=== PATIENT | male | born 1995 | race Caucasian/White ===

== ENCOUNTER 2020-08-18 00:14 | Emergency (ER) | payer BC, OTHER ==
[~2020-08-18] VITALS: Ht 175.3 cm; Wt 70.3 kg
[2020-08-18 00:14] VITALS: BP_SYST 129
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
--- NOTE | 2020-08-18 00:27 | NUR ---
ER Dr. Vann at bedside examining patient.
--- NOTE | 2020-08-18 00:44 | NUR ---
# 20 gauge angiocath placed to LAC. Use of asceptic technique. Opsite placed over site. Blood return noted. Blood for lab drawn from site. Flushed with 10 cc of normal saline. No evidence of infiltration noted. Patient tolerated well.
[2020-08-18] MEDS ORDERED: NACL 0.9% 1,000 ML IV ONE (00:45)
--- NOTE | 2020-08-18 00:46 | NUR ---
PATIENT OFF UNIT TO CT SCAN ACCOMPANIED BY APPRAISAL TECHNICIAN AND EMT
--- NOTE | 2020-08-18 00:52 | NUR ---
PATIENT RETURNED FROM CT SCAN.
[2020-08-18 00:54] LABS: BASOPHILS # (AUTO) 0.1 K/uL (0.0-0.2); BASOPHILS % (AUTO) 0.9 % (0.0-2.0); EOSINOPHILS # (AUTO) 0.6 K/uL (0.0-0.4); EOSINOPHILS % (AUTO) 8.5 % (0.0-4.0); HEMATOCRIT 41.5 % (36-54); HEMOGLOBIN 14.1 g/dL (14.0-18.0); LYMPHOCYTES # (AUTO) 2.3 K/uL (1.0-5.5); LYMPHOCYTES % (AUTO) 36.2 % (20.5-51.5); MEAN CORPUSCULAR HEMOGLOBIN 30 pg (27-31); MEAN CORPUSCULAR HGB CONC 34 % (32-36); MEAN CORPUSCULAR VOLUME 88 fL (79.0-98.0); MONOCYTES # (AUTO) 0.5 K/uL (0.0-1.0); MONOCYTES % (AUTO) 7.8 % (1.7-9.3); NEUTROPHILS % (AUTO) 46.6 % (40.0-70.0); PLATELET COUNT (AUTO) 196 K/uL (130-430); RED BLOOD CELL COUNT(AUTO) 4.73 MIL/uL (4.2-6.2); RED CELL DISTRIBUTION WIDTH 12.9 % (9.0-15.0); WHITE BLOOD COUNT (AUTO) 6.5 K/uL (4.8-10.8)
[2020-08-18 01:07] LABS: CALCIUM 8.6 mg/dL (8.4-11.0); CREATININE 0.91 mg/dL (0.55-1.30); POTASSIUM 3.3 mmol/L (3.5-5.1)
--- NOTE | 2020-08-18 01:07 | NUR ---
[facility] AT BEDSIDE SPEAKING TO PATIENT.
--- NOTE | 2020-08-18 01:10 | NUR ---
[facility] #[phone]
[2020-08-18 01:13] LABS: ALBUMIN 3.7 g/dL (3.4-4.8); TOTAL BILIRUBIN 0.2 mg/dL (0.0-1.0)
--- NOTE | 2020-08-18 01:20 | NUR ---
RADIOLOGY AT BEDSIDE FOR RIGHT HAND XRAY.
--- NOTE | 2020-08-18 01:37 | NUR ---
PATIENT REQUESTING GIRLFRIEND AT BEDSIDE. GIRLFRIEND CALLED FROM WAITING ROOM. PATIENT RESTING COMFORTABLY
--- NOTE | 2020-08-18 01:46 | NUR ---
PATIENT YELLING AND SCREAMING WANTING TO REMOVE C-COLLAR. PATIENT AWAITING CT RESULTS.
[2020-08-18 01:48] LABS: BILIRUBIN,URINE NEGATIVE (NEGATIVE); BLOOD, URINE NEGATIVE (NEGATIVE); CLARITY/URINE CLEAR (CLEAR); COLOR,URINE YELLOW (YELLOW); GLUCOSE,URINE NEGATIVE (NEGATIVE); KETONES,URINE NEGATIVE (NEGATIVE); LEUKOCYTE ESTERASE ,URINE NEGATIVE (NEGATIVE); NITRITE, URINE NEGATIVE (NEGATIVE); PROTEIN URINE NEGATIVE (NEGATIVE); UROBILINOGEN,URINE 0.2 (0.2-1.0)
[2020-08-18 02:00] LABS: BARBITURATE, URINE NEGATIVE (NEG <=200); BENZODIAZEPINE, URINE NEGATIVE (NEG <=150); CANNABINOID, URINE POSITIVE (NEG <=50); COCAINE, URINE POSITIVE (NEG <=150); METHAMPHETAMINES SCREEN,URINE NEGATIVE (NEG <=500); OPIATE, URINE NEGATIVE (NEG <=100); PHENCYCLIDINE SCREEN,URINE NEGATIVE (NEG <=25); UR TRICYCLIC ANTIDEPRESSANTS NEGATIVE (NEG <=300); URINE AMPHETAMINE NEGATIVE (NEG <=500); URINE METHADONE NEGATIVE (NEG <=200); URINE OXYCODONE SCREEN POSITIVE (NEG <=100); URINE PROPOXYPHENE SCREEN NEGATIVE (NEG <=300)
--- NOTE | 2020-08-18 02:42 | NUR ---
DR. GONZALEZ AT BEDSIDE REMOVING C-COLLAR.
--- NOTE | 2020-08-18 02:46 | NUR ---
Patient resting quietly. No acute distress noted. Vital signs within normal range.
[2020-08-18] MEDS ORDERED: AMMONIA INHALANT 0.3mL AMPUL INH ONE (02:56)
[2020-08-18 03:11] VITALS: BP_SYST 107
--- NOTE | 2020-08-18 03:11 | NUR ---
Patient given written and verbal discharge instructions and verbalizes understanding. ER MD discussed with patient the results and treatment provided. Patient in stable condition. ID arm band removed. IV catheter removed intact and dressing applied, no active bleeding. NO RX given. Patient educated on pain management and to follow up with PMD. Pain Scale 0/10 Opportunity for questions provided and answered.
[2020-08-18] MEDS ORDERED: DIPH-TET-PERTUS Vaccine 0.5 ML VIAL (ADACEL) I.M. ONE (03:15)
== END 2020-08-18 03:11 | disposition home or self-care (01) ==
LOC: SED 00:14
DX: S60.511A Abrasion of right hand, initial encounter (principal); F10.129 Alcohol abuse with intoxication, unspecified; F12.10 Cannabis abuse, uncomplicated; W18.39XA Other fall on same level, initial encounter; Y93.89 Activity, other specified; Y92.89 Other specified places as the place of occurrence of the external cause; Y99.8 Other external cause status
CPT/HCPCS: 29125; 36415; 70450; 72125; 73100; 76376; 80053; 80307; 81003; 82962; 85025; 90471; 93005; 96360; 99285; G0482; J7030